=== PATIENT | female | born 1990 | race Caucasian/White ===

== ENCOUNTER 2024-02-15 17:45 | Inpatient (IN) ==
[2024-02-15] MEDS ORDERED: Lidocaine 1% VIAL 10 MG/ML 30 ML VIAL INJ PRN (18:17)
[2024-02-15] MEDS: Lactated Ringers 1000 ml BAG 1,000 ML IV ONE (19:25)
[2024-02-15 19:36] LABS: ABS Eosinophils 0.1 10^3/uL (0.0-0.5); ABS Lymphocytes 1.9 10^3/uL (1.0-4.8); ABS Neutrophils 7.2 10^3/uL (1.5-7.6); Eosinophil % 0.6 %; Hematocrit 32.9 % (35-45); Hemoglobin 10.7 g/dL (11.5-14.3); Lymphocyte % 18.7 %; Mean Corpuscular Hemoglobin 27.2 pg (27-33); Mean Corpuscular Hgb Conc 32.7 g/dL (31-36); Mean Corpuscular Volume 83.3 fL (80-97); Platelet Count 197 10^3/uL (150-450); Red Blood Count 3.95 10^6/uL (3.63-4.92); Red Cell Distribution Width 16.1 % (12-17); White Blood Count 10.2 10^3/uL (3.8-11.8)
[2024-02-15] MEDS: OBEPIDURAL (200 ML) 200 ML EPIDURAL ONE (19:40)
[2024-02-15 19:51] LABS: Urine Benzodiazepine Screen None Detected (None Detect); Urine Cannabinoids Screen None Detected (None Detect); Urine Opiates Screen None Detected (None Detect)
[2024-02-15 20:35] LABS: Urine Appearance Clear; Urine Bilirubin Negative (Negative); Urine Blood Negative (Negative); Urine Color Light-Yellow; Urine Glucose Negative (Negative); Urine Ketones Negative (Negative); Urine Nitrite Negative (Negative); Urine Protein Negative (Negative); Urine Specific Gravity 1.015 (1.002-1.030); Urine Urobilinogen Negative (Negative); Urine pH 6.5 (5.0-8.0)
[2024-02-15] MEDS: Lidocaine 1.5% EPI 1:200,000 30 ML SDV ONE (20:58)
[2024-02-15] MEDS: Phenylephrine 40 mcg/mL 10mL (400mcg) SYRINGE ONE (22:55)
[2024-02-15] MEDS ORDERED: Glycerin ADULT 2.4 gm SUPP PR PRN (23:41)
[2024-02-15] MEDS ORDERED: Lactated Ringers 1000 ml BAG 1,000 ML IV SCH (23:45)
[2024-02-16 09:54] LABS: ABS Basophils 0.1 10^3/uL (0.0-0.1); ABS Lymphocytes 1.6 10^3/uL (1.0-4.8); ABS Monocytes 1.2 10^3/uL (0.0-0.9); ABS Nucleated RBC 0.01 10^3/ul; Eosinophil % 0.3 %; Hematocrit 30.1 % (35-45); Hemoglobin 9.9 g/dL (11.5-14.3); Lymphocyte % 11.7 %; Mean Corpuscular Hemoglobin 27.6 pg (27-33); Mean Corpuscular Volume 83.8 fL (80-97); Platelet Count 166 10^3/uL (150-450); Red Blood Count 3.59 10^6/uL (3.63-4.92); Red Cell Distribution Width 15.7 % (12-17); White Blood Count 13.9 10^3/uL (3.8-11.8)
[2024-02-16] MEDS: Witch Hazel PAD JAR TOPICAL PRN (11:50)
[2024-02-16] MEDS: Dibucaine 1% OINT 28.35 GM TUBE PR PRN (11:50)
[2024-02-17 09:27] VITALS: BP 90/66
== END 2024-02-17 10:55 | disposition home health service (06) | DRG 807 ==
LOC: MCHOBOUT 17:45 → MCHOB 18:16
PROVIDERS: ADMIT Midwife; ATTEND Midwife